=== PATIENT | female | born 1990 | race Caucasian/White ===

== ENCOUNTER 2023-10-16 19:40 | Outpatient (CLI) ==
[2023-10-16 19:50] VITALS: BP 124/74
[2023-10-16] MEDS ORDERED: CLAR10CA3 PO (20:02)
[2023-10-16] MEDS ORDERED: PRENTAB9 PO (20:02)
== END 2023-10-16 21:05 | disposition home or self-care (01) ==
LOC: M LDO 19:40
PROVIDERS: ATTEND Obstetrics & Gynecology
DX: O36.8130 Decreased fetal movements, third trimester, not applicable or unspecified (principal); Z3A.40 40 weeks gestation of pregnancy; Z88.0 Allergy status to penicillin
CPT/HCPCS: 59025; G0463

== ENCOUNTER 2023-10-18 10:03 | Inpatient (IN) | payer OTHER ==
[2023-10-18] VITALS (33 sets, daily range): BP systolic 69–127; BP diastolic 42–100
[~2023-10-18] VITALS: Ht 162.6 cm; Wt 73.8 kg
[~2023-10-18 10:03] MED LIST: CLAR10CA3 PO; PRENTAB9 PO
[2023-10-18] MEDS ORDERED: HOME MED LIST COMPLETE! XX SCH (10:25)
[2023-10-18] MEDS ORDERED: OXYTOCIN DRIP 30 UNITS in IV 1 EA IV PRN ×4 (12:10)
[2023-10-18] MEDS ORDERED: LIDOCAINE 1% MDV 20ML VIAL INFIL PRN (12:10)
[2023-10-18] MEDS ORDERED: METHYLERGONOVINE MALEATE 0.2MG/ML 1ML VIAL IM PRN (12:10)
[2023-10-18] MEDS ORDERED: TRANEXAMIC ACID INJection 1,000 MG in NS 100 ML IV PRN (12:10)
[2023-10-18] MEDS: LR 1,000 ML IV SCH ×3 (13:42→20:25)
[2023-10-18 13:46] LABS: HEMATOCRIT 35.9 % (36.0-47.0); MEAN CORPUSCULAR HGB CONC 36.2 g/dl (32.0-36.5); MEAN CORPUSCULAR VOLUME 102.3 fl (80.0-96.0); PLATELET COUNT, AUTOMATED 225 10^3/uL (150-450); RED BLOOD COUNT 3.51 10^6/uL (4.00-5.40); WHITE BLOOD COUNT 15.5 10^3/uL (4.0-10.0)
[2023-10-18] MEDS ORDERED: PROMETHAZINE 25MG/ML 1ML VIAL IV ONE (13:55)
[2023-10-18] MEDS ORDERED: BUTORPHANOL 2 MG/ML 1ML VIAL IV ONE (13:55)
[2023-10-18] MEDS ORDERED: ONDANSETRON 4MG 2ML VIAL IV PRN (18:55)
[2023-10-18] MEDS ORDERED: FENTANYL/ROPIVACAINE/NACL BAG 100 ML EPIDURAL SCH (18:55)
[2023-10-18] MEDS ORDERED: LR 500 ML IV PRN (18:55)
[2023-10-18] MEDS ORDERED: diphenhydrAMINE 50MG/ML VIAL IV PRN (18:55)
[2023-10-18] MEDS ORDERED: EPIDURAL/PCA KEYS XX PRN (18:55)
[2023-10-18] MEDS ORDERED: ePHEDrine SULFATE 25 MG/5 ML(5MG/ML) SYRINGE IVP PRN (18:55)
[2023-10-18] MEDS ORDERED: NALOXONE INJ 0.4MG/1ML VIAL IV PRN (18:55)
[2023-10-18] MEDS ORDERED: FENTANYL 2MCG/ML ROPIVACAINE 0.2% IN 0.9% NACL 100ML IVBAG As Ordered ONE (19:15)
[2023-10-19] VITALS (12 sets, daily range): BP systolic 98–117; BP diastolic 51–68; O2SAT 96
[2023-10-19] MEDS ORDERED: OXYTOCIN DRIP 30 UNITS in IV 1 EA IV SCH ×2 (00:35→04:35)
[2023-10-19 03:45] LABS: CORD GAS ABE A -8.4; CORD GAS ABE V -7.8; CORD GAS HCO3 A 19.2 MMOL/L; CORD GAS HCO3 V 18.3 MMOL/L; CORD GAS O2 SAT A 67.6 %; CORD GAS O2 SAT V 77.3 %; CORD GAS PCO2 A 47.2 mmHg; CORD GAS PCO2 V 39.4 mmHg; CORD GAS PH A 7.227 UNITS; CORD GAS PH V 7.285 UNITS; CORD GAS PO2 A 35.8 mmHg; CORD GAS SBC A 17.2 MMOL/L; CORD GAS SBC V 17.8 MMOL/L; CORD GAS TCO2 A 20.6 MMOL/L; CORD GAS TCO2 V 19.5 MMOL/L
[2023-10-19] MEDS ORDERED: METHYLERGONOVINE MALEATE 0.2MG/ML 1ML VIAL IM PRN (04:35)
[2023-10-19] MEDS ORDERED: DIBUCAINE 1% OINTMENT 30GM TOP PRN (04:35)
[2023-10-19] MEDS ORDERED: ONDANSETRON 4MG 2ML VIAL IV PRN (04:35)
[2023-10-19] MEDS ORDERED: IBUPROFEN 600MG TAB PO PRN (04:35)
[2023-10-19] MEDS ORDERED: ACETAMINOPHEN TAB 650MG DOSE (2X325MG) PO PRN (04:35)
[2023-10-19] MEDS ORDERED: RHOGAM 300MCG (1500IU) INJ IM SCH (04:35)
[2023-10-19] MEDS ORDERED: METOCLOPRAMIDE INJ 10MG/2ML VIAL IV PRN (04:35)
[2023-10-19] MEDS ORDERED: LR 1,000 ML IV SCH (04:35)
[2023-10-19] MEDS: ACETAMINOPHEN 500 MG TAB PO PRN ×2 (05:20→21:57)
[2023-10-19] MEDS: PRENATAL VITAMINS CHEWABLE TABLET PO SCH (07:30)
[2023-10-19] MEDS ORDERED: PRENATAL VITAMINS CHEWABLE TABLET PO SCH (09:00)
[2023-10-19] MEDS: LORATADINE 10 MG TAB PO SCH (10:19)
[2023-10-19] MEDS: DOCUSATE SODIUM 100MG CAPSULE PO PRN (18:13)
[2023-10-20] MEDS: IBUPROFEN 800 MG TAB PO PRN ×2 (05:15→19:32)
[2023-10-20 06:00] VITALS: BP 98/43
[2023-10-20 07:40] LABS: HEMATOCRIT 31.6 % (36.0-47.0); HEMOGLOBIN 11.2 g/dl (12.0-15.5); MEAN CORPUSCULAR HEMOGLOBIN 37.6 pg (27.0-33.0); MEAN CORPUSCULAR HGB CONC 35.4 g/dl (32.0-36.5); PLATELET COUNT, AUTOMATED 162 10^3/uL (150-450); RED BLOOD COUNT 2.98 10^6/uL (4.00-5.40); WHITE BLOOD COUNT 13.1 10^3/uL (4.0-10.0)
[2023-10-20] MEDS: LORATADINE 10 MG TAB PO SCH (09:09)
[2023-10-20] MEDS: PRENATAL VITAMINS CHEWABLE TABLET PO SCH (09:09)
[2023-10-20 18:00] VITALS: BP 117/56; O2SAT 100
[2023-10-20] MEDS: DOCUSATE SODIUM 100MG CAPSULE PO PRN (19:31)
[2023-10-21 06:00] VITALS: BP 114/71
[2023-10-21] MEDS: LORATADINE 10 MG TAB PO SCH (08:26)
[2023-10-21] MEDS: PRENATAL VITAMINS CHEWABLE TABLET PO SCH (08:26)
[2023-10-21] MEDS: IBUPROFEN 800 MG TAB PO PRN (08:27)
[2023-10-21] MEDS ORDERED: MEASLES,MUMPS,RUBELLA VACCINE INJ (MMR-II) SC.IMMUN ONE (09:00)
== END 2023-10-21 12:32 | disposition home or self-care (01) | DRG 807 ==
LOC: M LDO 10:03 → M LDI 12:07 → M OBS 10-19 05:45
PROVIDERS: ADMIT Obstetrics & Gynecology; ATTEND Obstetrics & Gynecology
PROC: 10907ZC Drainage of Amniotic Fluid, Therapeutic from Products of Conception, Via Natural or Artificial Opening (ICD-10-PCS; 2023-10-18)
PROC: 10E0XZZ Delivery of Products of Conception, External Approach (ICD-10-PCS; principal; 2023-10-19)
PROC: 0HQ9XZZ Repair Perineum Skin, External Approach (ICD-10-PCS; 2023-10-19)
DX: O48.0 Post-term pregnancy (principal); Z37.0 Single live birth; Z3A.40 40 weeks gestation of pregnancy; Z88.0 Allergy status to penicillin; O70.0 First degree perineal laceration during delivery